=== PATIENT | female | born 1975 | race Two or more races ===

== ENCOUNTER 2025-01-25 09:17 | Observation (INO) | payer OTHER ==
[2025-01-25 09:42] VITALS: RESP 18; BMI 24.7
[2025-01-25 10:55] LABS: ABSOLUTE IMMATURE GRANULOCYTES 0.03 x10^3/uL (0.0-0.031); BASOPHILS # 0.02 x10^3/uL (0.01-0.08); EOSINOPHIL % 0.1 % (0.7-5.8); EOSINOPHILS # 0.01 x10^3/uL (0.04-0.36); HEMOGLOBIN 13.2 g/dL (11.2-15.7); MEAN CELL VOLUME 93.5 fl (79.4-94.8); MEAN PLT VOLUME 9.7 fl (9.4-12.3); MONOCYTE # 0.34 x10^3/uL (0.24-0.86); MONOCYTE % 3.8 % (4.7-12.5); PLATELET COUNT 274 x10^3/uL (182-369); RDW 12.6 % (12.3-16.6)
[2025-01-25] MEDS ORDERED: ACETAMINOPHEN INJECTION 100 ML ONE (10:58)
[2025-01-25 11:04] LABS: INR 1.1 (0.83-1.09); PROTHROMBIN TIME (PATIENT) 12.1 SEC (9.7-13.0)
[2025-01-25 11:07] LABS: ACTIVATED PTT 28.7 SECONDS (25.2-36.5)
[2025-01-25 11:20] LABS: POTASSIUM 3.9 mmol/L (3.5-5.1)
[2025-01-25 11:22] LABS: ALBUMIN 3.8 g/dl (3.4-5.0); BLOOD UREA NITROGEN 16.4 mg/dL (7-18); CALCIUM 9.6 mg/dL (8.5-10.1); MAGNESIUM 2.1 mg/dL (1.8-2.4)
[2025-01-25] MEDS: ACETAMINOPHEN 1000 MG/100 ML BAG IVPB ONE (11:24)
[2025-01-25 11:25] LABS: CREATININE 0.6 mg/dL (0.55-1.3)
[2025-01-25 11:27] LABS: BILIRUBIN,TOTAL 0.3 mg/dL (0.2-1); TOT PROT 7.1 g/dl (6.4-8.2)
[2025-01-25 13:38] LABS: URINE APPEARANCE CLOUDY; URINE BILIRUBIN NEGATIVE (NEGATIVE); URINE COLOR YELLOW; URINE GLUCOSE (UA) NEGATIVE (NEGATIVE); URINE KETONE NEGATIVE (NEGATIVE); URINE LEUK ESTERASE NEGATIVE (NEGATIVE); URINE NITRITE NEGATIVE (NEGATIVE); URINE PROTEIN NEGATIVE (NEGATIVE); URINE UROBILINOGEN 0.2 mg/dL (0.2-1.0)
[2025-01-25] MEDS ORDERED: MORPHINE SULFATE 2 MG/ML SYRINGE ONE (15:38)
[2025-01-25] MEDS: morphine CARPU-JECT 2 MG/1 ML DISP.SYRIN IVPUSH ONE (15:42)
[2025-01-25] MEDS: SODIUM CHLORIDE 1,000 ML IV STA (15:43)
[2025-01-25] MEDS ORDERED: CIPROFLOXACIN 400 MG/D5W 400 MG/200 ML IVPB IVPB ONE (16:03)
[2025-01-25] MEDS ORDERED: ACETAMINOPHEN 1000 MG/100 ML BAG IVPB PRN (16:45)
[2025-01-25] MEDS: SODIUM CHLORIDE 1,000 ML with POTASSIUM CHLORIDE 20 MEQ IV SCH (17:48)
[2025-01-25] MEDS: CIPROFLOXACIN 400 MG/D5W 400 MG/200 ML IVPB IVPB ONE (18:48)
[2025-01-25] MEDS ORDERED: CIPROFLOXACIN 400 MG/D5W 400 MG/200 ML IVPB IVPB SCH (22:00)
[2025-01-26 07:54] LABS: ABSOLUTE IMMATURE GRANULOCYTES 0.02 x10^3/uL (0.0-0.031); BASOPHILS # 0.02 x10^3/uL (0.01-0.08); EOSINOPHIL % 1.6 % (0.7-5.8); EOSINOPHILS # 0.09 x10^3/uL (0.04-0.36); HEMATOCRIT 36.2 % (34.1-44.9); HEMOGLOBIN 11.6 g/dL (11.2-15.7); MEAN PLT VOLUME 9.9 fl (9.4-12.3); MONOCYTE # 0.46 x10^3/uL (0.24-0.86); MONOCYTE % 8.4 % (4.7-12.5); PLATELET COUNT 237 x10^3/uL (182-369); RDW 12.6 % (12.3-16.6)
[2025-01-26] MEDS ORDERED: CIPROFLOXACIN 400 MG/D5W 400 MG/200 ML IVPB IVPB SCH (08:00)
[2025-01-26 08:18] LABS: POTASSIUM 3.8 mmol/L (3.5-5.1)
[2025-01-26 08:42] LABS: ALBUMIN 3.3 g/dl (3.4-5.0); BLOOD UREA NITROGEN 13.8 mg/dL (7-18); CALCIUM 9.5 mg/dL (8.5-10.1)
[2025-01-26 08:43] LABS: MAGNESIUM 1.9 mg/dL (1.8-2.4)
[2025-01-26 08:45] LABS: CREATININE 0.6 mg/dL (0.55-1.3)
[2025-01-26 08:47] LABS: BILIRUBIN,TOTAL 0.6 mg/dL (0.2-1); TOT PROT 6.1 g/dl (6.4-8.2)
[2025-01-26] MEDS: CIPROFLOXACIN 400 MG/D5W 400 MG/200 ML IVPB IVPB SCH (10:02)
[2025-01-26 12:15] VITALS: BP 115/79; PULSE 61; TEMP 98.2
== END 2025-01-26 16:34 | disposition home or self-care (01) ==
LOC: JER 09:17 → JERBED 15:06 → INTOOBSV 15:06 → UNDOADMOB 15:06 → J6S 17:22 → JERBED 17:22 → J6S 01-26 11:16 → JERBED 01-26 11:16
PROVIDERS: ADMIT Student in an Organized Health Care Education/Training Program; ATTEND Internal Medicine
PROC: 3E033NZ Introduction of Analgesics, Hypnotics, Sedatives into Peripheral Vein, Percutaneous Approach (ICD-10-PCS; principal; 2025-01-26)
PROC: 3E03329 Introduction of Other Anti-infective into Peripheral Vein, Percutaneous Approach (ICD-10-PCS; 2025-01-26)
PROC: 3E0337Z Introduction of Electrolytic and Water Balance Substance into Peripheral Vein, Percutaneous Approach (ICD-10-PCS; 2025-01-26)
PROC: 3E033GC Introduction of Other Therapeutic Substance into Peripheral Vein, Percutaneous Approach (ICD-10-PCS; 2025-01-26)
DX: K52.9 Noninfective gastroenteritis and colitis, unspecified (principal); K80.20 Calculus of gallbladder without cholecystitis without obstruction; F12.90 Cannabis use, unspecified, uncomplicated
CPT/HCPCS: 36415; 74177-TC; 80053; 81003; 83690; 83735; 84100; 85025; 85610; 85730; 86850; 86900; 86901; 87086; 96361; 96365; 96366; 96367; 96375; 99285-25; G0378; J0131; Q9967